=== PATIENT | male | born 1970 | race Caucasian/White ===

== ENCOUNTER 2019-04-15 21:46 | Emergency (ER) | payer BC ==
[2019-04-15] MEDS ORDERED: ONDANSETRON HCL INJ/PF 4 MG/2 ML SDV IV ONE (23:23)
[2019-04-15] MEDS ORDERED: MORPHINE SULFATE 10 MG/ML INJ IV ONE (23:23)
--- NOTE | 2019-04-15 23:25 | ER Document Report ---
ED Medical Screen (RME) - General Chief Complaint: Testicular Pain Stated Complaint: TESTICULAR PAIN/ABDOMINAL PAIN Notes: Patient is a 48-year-old white male with no significant past medical history who presents to the emergency department with a chief complaint of lower back pain. He states it began this morning. He states he has no history of back pain or problems. States when he tried to get out of bed the pain was worse. He states over time the pain is began to develop and radiate around the right flank and right hip. He states now the pain has graduated and seems to be localized to the right lower quadrant radiating to the right testicle and right proximal thigh. He denies any testicular tenderness, redness or swelling. Denies any penile discharge. Denies any recent injuries or illnesses. Denies any fever, nausea, vomiting, diarrhea, chills, night sweats. I have treated and performed a rapid initial assessment of this patient. A comprehensive ED assessment and evaluation of the patient, analysis of test results and completion of medical decision making process will be conducted by additional ED providers. PHYSICAL EXAMINATION: : Chaperoned by female nurse, nontender testicles bilaterally. No epididymal tenderness to palpation. No testicular swelling, redness or increased warmth. Normal cremasteric reflex bilaterally. No penile discharge. No inguinal lymphadenopathy. Physical Exam - Vital signs Vitals: Temp Pulse Resp BP Pulse Ox 98.5 F 103 H 20 141/77 H 96 04/15/19 22:13 04/15/19 22:13 04/15/19 22:13 04/15/19 22:13 04/15/19 22:13 Course - Vital Signs Vital signs: Temp Pulse Resp BP Pulse Ox 98.5 F 103 H 20 141/77 H 96 04/15/19 22:13 04/15/19 22:13 04/15/19 22:13 04/15/19 22:13 04/15/19 22:13
[2019-04-16 00:04] LABS: ABSOLUTE BASOPHILS # (AUTO) 0.1 10^3/uL (0.0-0.2); ABSOLUTE EOSINOPHILS # (AUTO) 0.1 10^3/uL (0.0-0.6); ABSOLUTE LYMPHOCYTES (AUTO) 3.1 10^3/uL (0.5-4.7); ABSOLUTE MONOCYTES (AUTO) 0.6 10^3/uL (0.1-1.4); BASOPHILS % (AUTO) 0.6 % (0-2); EOSINOPHILS % (AUTO) 0.9 % (0-6); HEMATOCRIT 46.5 % (37.9-51.0); HEMOGLOBIN 16.2 g/dL (13.5-17.0); LYMPHOCYTES % (AUTO) 20.7 % (13-45); MEAN CORPUSCULAR HEMOGLOBIN 34.2 pg (27.0-33.4); MEAN CORPUSCULAR HGB CONC 34.9 g/dL (32.0-36.0); MEAN CORPUSCULAR VOLUME 98 fl (80-97); MONOCYTES % (AUTO) 4.3 % (3-13); PLATELET COUNT 262 10^3/uL (150-450); RED BLOOD COUNT 4.75 10^6/uL (4.35-5.55); RED CELL DISTRIBUTION WIDTH 12.7 % (11.5-14.0); SEGMENTED NEUTROPHILS % (AUTO) 73.5 % (42-78); TOTAL CELLS COUNTED % (AUTO) 100 %
[2019-04-16 00:11] LABS: APPEARANCE,URINE CLEAR; BILIRUBIN,URINE NEGATIVE (NEGATIVE); COLOR,URINE YELLOW; GLUCOSE, URINE NEGATIVE (NEGATIVE); KETONES,URINE TRACE mg/dL (NEGATIVE); LEUKOCYTE ESTERASE,URINE NEGATIVE (NEGATIVE); NITRITE,URINE NEGATIVE (NEGATIVE); PROTEIN,URINE NEGATIVE (NEGATIVE); URINE SPECIFIC GRAVITY 1.015; UROBILINOGEN,URINE NEGATIVE mg/dL (<2.0)
[2019-04-16 00:17] LABS: ALBUMIN 5.1 g/dL (3.5-5.0); ALKALINE PHOSPHATASE 91 U/L (38-126); ASPARTATE AMINO TRANSFERASE 42 U/L (17-59); CARBON DIOXIDE 22 mmol/L (22-30); GLUCOSE 113 mg/dL (75-110); TOTAL PROTEIN 8.1 g/dL (6.3-8.2)
[2019-04-16 00:49] LABS: ANION GAP 13 (5-19); BILIRUBIN,DIRECT 0.1 mg/dL (0.0-0.4); BILIRUBIN,TOTAL 0.4 mg/dL (0.2-1.3); BLOOD UREA NITROGEN 14 mg/dL (7-20); CHLORIDE 99 mmol/L (98-107); POTASSIUM 4.7 mmol/L (3.6-5.0)
--- NOTE | 2019-04-16 03:44 | ER Document Report ---
ED GI/ - General Chief Complaint: Testicular Pain Stated Complaint: TESTICULAR PAIN/ABDOMINAL PAIN Time Seen by Provider: 04/16/19 03:38 Primary Care Provider: VERONICA GRIFFIN MD [Primary Care Provider] - Follow up as needed AKSHAT VELARDE DO [ACTIVE STAFF] - Follow up as needed Notes: CHIEF COMPLAINT: Right lower quadrant and right testicular pain HPI: 48-year-old male presenting to the emergency department complaining of right back pain that began yesterday when he woke up. States it has progressed into the right lower quadrant radiating through the right patient states pain does seem to be worse with movement. Has had one episode of vomiting no fever. Testicle but denies specific testicular pain. No prior history of similar discomfort. ROS: See HPI - all other systems were reviewed and are otherwise negative Constitutional: no fever Eyes: no drainage, no blurred vision ENT: no runny nose, no sore throat Cardiovascular: no chest pain Resp: no SOB, no cough GI: Positive vomiting, no diarrhea, positive abdominal pain : no dysuria, positive testicular pain Integumentary: no rash Allergy: no hives Musculoskeletal: no extremity pain or swelling Neurological: no numbness/tingling, no weakness MEDICATIONS: I agree with the patient medications as charted by the RN. ALLERGIES: I agree with the allergies as charted by the RN. PAST MEDICAL HISTORY/PAST SURGICAL HISTORY: Reviewed and agree as charted by RN. SOCIAL HISTORY: Reviewed and agree as charted by RN. FAMILY HISTORY: No significant familial comorbid conditions directly related to patient complaint EXAM: Reviewed vital signs as charted by RN. CONSTITUTIONAL: Alert and oriented and responds appropriately to questions. We ll-appearing; well-nourished HEAD: Normocephalic; atraumatic EYES: PERRL; Conjunctivae clear, sclerae non-icteric ENT: normal nose; no rhinorrhea; moist mucous membranes; pharynx without lesions noted, no uvula edema or deviation, no tonsillar hypertrophy, phonation normal NECK: Supple without meningismus; non-tender; no cervical lymphadenopathy, no masses CARD: RRR; no murmurs, no clicks, no rubs, no gallops; symmetric distal pulses RESP: Normal chest excursion without splinting or tachypnea; breath sounds clear and equal bilaterally; no wheezes, no rhonchi, no rales, pulse oximetry 98% on room air not hypoxic ABD/GI: Normal bowel sounds; non-distended; soft, unable to reproduce any pain in the right lower quadrant on palpation, no rebound, no guarding; no palpable organomegaly or masses. : Circumcised male. Bilateral testicles are descended and completely nontender. No visible or palpable inguinal or scrotal hernia BACK: The back appears normal and is non-tender to palpation, there is no CVA tenderness EXT: Normal ROM in all joints; non-tender to palpation; no cyanosis, no eff usions, no edema SKIN: Normal color for age and race; warm; dry; good turgor; no acute lesions no ricci NEURO: Moves all extremities equally; Motor and sensory function intact PSYCH: The patient's mood and manner are appropriate. Grooming and personal hygiene are appropriate. MDM: 48-year-old male with right back pain with radiation now through the right lower quadrant into the posterior aspect of the perineum near the testicle, I would suspect a kidney stone based on his history and exam, he has no reproducible pain in the right lower quadrant suggesting appendicitis at this time. Does have mild leukocytosis but urine does not show specific infection or significant hematuria. CT ordered through triage process. Awaiting results TRAVEL OUTSIDE OF THE [place] IN LAST 30 DAYS: No - Related Data Allergies/Adverse Reactions: No Known Allergies Allergy (Unverified 04/15/19 23:24) Home Medications: amlodipine-benazepril Past Medical History - Social History Smoking Status: Current Every Day Smoker Chew tobacco use (# tins/day): No Frequency of alcohol use: Heavy Drug Abuse: Marijuana Family History: Reviewed & Not Pertinent Patient has suicidal ideation: No Patient has homicidal ideation: No - Past Medical History Cardiac Medical History: Reports: Hx Hypertension Physical Exam - Vital signs Vitals: Temp Pulse Resp BP Pulse Ox 98.5 F 103 H 20 141/77 H 96 04/15/19 22:13 04/15/19 22:13 04/15/19 22:13 04/15/19 22:13 04/15/19 22:13 Course - Re-evaluation Re-evalutation: 04/16/19 04:56 Patient still complaining of pain. States the pain seems to radiate through the right groin region down the lateral and medial right thigh with spasming of the muscles. I have low suspicion for DVT in this patient. He again has no direct tenderness on palpation of the right testicle to suggest torsion or epididymitis. CT was read as negative for inflammatory changes or stone. Urine does not show evidence of infection. Leukocytosis likely from pain issue. I believe this is more likely musculoskeletal. Will obtain a d-dimer. Do not have Doppler study overnight. Will obtain ultrasound of the testicle given his continued pain will give Toradol. If ultrasound and d-dimer are negative anticipate discharge home with pain management and follow-up 04/16/19 05:57 D-dimer is negative. Low suspicion for DVT. If ultrasound of the testicles are is negative will discharge home with symptomatic treatment as it is more likely this is musculoskeletal in nature 04/16/19 06:56 Ultrasound is negative for torsion or mass. Patient has some fasciculations in the musculature of the leg suggesting a musculoskeletal origin. Discussed at length with the patient will discharge to follow-up with PCP and orthopedics - Vital Signs Vital signs: Temp Pulse Resp BP Pulse Ox 98.2 F 77 20 155/83 H 97 04/16/19 06:01 04/16/19 06:01 04/16/19 06:01 04/16/19 06:01 04/16/19 06:01 - Laboratory Result Diagrams: 04/15/19 23:25 04/15/19 23:25 Laboratory results interpreted by me: 04/15/19 04/15/19 04/15/19 23:25 23:25 23:25 WBC 15.0 H MCV 98 H MCH 34.2 H Absolute Neuts (auto) 11.0 H Sodium 134.0 L Glucose 113 H ALT 64 H Albumin 5.1 H Urine Ketones TRACE H Discharge - Discharge Clinical Impression: Acute right flank pain, Right testicular pain, Right leg pain Condition: Stable Disposition: HOME, SELF-CARE Additional Instructions: Pain medication as prescribed, no driving on narcotics. Follow-up with both your primary care provider or orthopedics for further evaluation and treatment call for appointment. CT imaging, lab work, ultrasound imaging did not show a definitive cause for your symptoms today Prescriptions: Diazepam [Valium 2 mg Tablet] 2 mg PO Q6HP PRN #15 tablet PRN Reason: Hydrocodone/Acetaminophen [[place] 5-325 mg Tablet] 1 tab PO Q4 PRN #15 tablet PRN Reason: Diclofenac Sodium [Voltaren 50 Mg Tablet.] 50 mg PO BID #20 tablet. Referrals: VERONICA GRIFFIN MD [Primary Care Provider] - Follow up as needed AKSHAT VELARDE DO [ACTIVE STAFF] - Follow up as needed
[2019-04-16] MEDS ORDERED: ONDANSETRON HCL INJ/PF 4 MG/2 ML SDV IV ONE (03:45)
[2019-04-16] MEDS ORDERED: MORPHINE SULFATE 10 MG/ML INJ IV ONE (04:00)
--- NOTE | 2019-04-16 04:40 | RADIOLOGY REPORT (SQ) ---
CLINICAL HISTORY: RLQ, back/ flank pain R COMPARISON: None. TECHNIQUE: CT ABDOMEN PELVIS WITH IV CONTRAST on 04/15/2019 11:22 PM [employer] This exam was performed according to our departmental dose-optimization program, which includes automated exposure control, adjustment of the mA and/or kV according to patient size and/or use of iterative reconstruction technique. FINDINGS: Lower lungs are clear. Abdomen: The liver is normal in appearance. There is no biliary dilatation. The gallbladder is normal in appearance. The pancreas and spleen are normal in appearance. The adrenal glands and kidneys are unremarkable. Abdominal aorta is normal in course and caliber without aneurysm. There is no free air. There is no retroperitoneal adenopathy. Pelvis: There is no bowel obstruction. Urinary bladder is unremarkable. There is no free fluid. Appendix is normal. Skeleton: There are no acute osseous findings. No suspicious bony lesions. IMPRESSION: No definite acute inflammatory process. No renal or ureteral calculi.
[2019-04-16] MEDS ORDERED: KETOROLAC TROMETHAMINE INJ/PF 30 MG/1 ML SDV IV ONE (04:55)
--- NOTE | 2019-04-16 06:54 | RADIOLOGY REPORT (SQ) ---
TESTICULAR ULTRASOUND: 04/16/2019 5:50 AM POLE CLASSIFIER HISTORY: 48-year old patient with right testicular pain. COMPARISON: None available TECHNIQUE: Multiple longitudinal and transverse sonographic images were obtained of the right and left testicle. Color and spectral doppler images were obtained of the testicular vasculature. FINDINGS: Both testicles appear homogenous without evidence of a mass. Trace fluid is seen around both testicles, left greater than right. The left testicle appears normal in size, and it measures 4.3 x 3.0 x 2.1 cm. The left testicle appears homogeneous in echotexture and demonstrates arterial blood flow within the testicle. The left epididymal head appears normal in size and compression does not appear hyperemic. The right testicle appears normal in size, and it measures 4.2 x 3.1 x 2.0 cm. The right testicle appears homogeneous in echotexture and demonstrates good arterial blood flow within the testicle. The right epididymal head appears normal in size and does not appear hyperemic. There is a small spermatocele or epididymal cyst in the right side measuring up to 1.0 cm. IMPRESSION: 1. No evidence is seen to suggest testicular torsion. 2. No intratesticular mass is seen.
[2019-04-16 07:30] VITALS: BP 154/86
== END 2019-04-16 07:25 | disposition home or self-care (01) ==
LOC: ER 21:46
DX: N50.811 Right testicular pain (principal); R10.31 Right lower quadrant pain; R10.9 Unspecified abdominal pain; M62.838 Other muscle spasm; M79.651 Pain in right thigh; M54.9 Dorsalgia, unspecified; R11.10 Vomiting, unspecified; D72.829 Elevated white blood cell count, unspecified; F17.200 Nicotine dependence, unspecified, uncomplicated; F12.10 Cannabis abuse, uncomplicated; I10 Essential (primary) hypertension; Z79.899 Other long term (current) drug therapy
CPT/HCPCS: 99284; 96374; 96375; 36415; 83690; 85025; 80053; 81001; 85379; 76870; 93976; 74177; J1885; J2270; J2405